=== PATIENT | female | born 1990 | race Native Hawaiian/Other Pacific Islander ===

== ENCOUNTER 2016-08-30 21:02 | Emergency (ER) | payer OTHER ==
[~2016-08-30] VITALS: Ht 144.8 cm; Wt 69.4 kg
[2016-08-30 22:13] VITALS: BP 137/90; TEMP 98.6
== END 2016-08-30 22:13 | disposition home or self-care (01) ==
LOC: ED 21:02
DX: L73.2 Hidradenitis suppurativa (principal)
CPT/HCPCS: 99282; J0696

== ENCOUNTER 2016-10-13 17:59 | Emergency (ER) | payer OTHER ==
[~2016-10-13] VITALS: Ht 144.8 cm; Wt 64.9 kg
[2016-10-13 19:35] LABS: PLATELET COUNT 338 K/uL (152-353)
[2016-10-13 21:37] VITALS: BP 110/73; TEMP 98.7
== END 2016-10-13 21:40 | disposition home or self-care (01) ==
LOC: ED 17:59
PROVIDERS: Specialist
DX: O23.01 Infections of kidney in pregnancy, first trimester (principal); Z3A.01 Less than 8 weeks gestation of pregnancy
CPT/HCPCS: 36415; 81000; 84702; 85027; 87088; 87490; 87590; 96361; 96365; 99284; J0690

== ENCOUNTER 2016-10-25 19:03 | Emergency (ER) | payer OTHER ==
[~2016-10-25] VITALS: Ht 144.8 cm; Wt 64.9 kg
[2016-10-25 23:30] VITALS: BP 140/82; TEMP 98.3
== END 2016-10-25 23:30 | disposition home or self-care (01) ==
LOC: ED 19:03
DX: O20.0 Threatened abortion (principal); Z3A.01 Less than 8 weeks gestation of pregnancy; R10.2 Pelvic and perineal pain
CPT/HCPCS: 81000; 81025; 84702; 86900; 86901; 99283

== ENCOUNTER 2018-05-03 07:24 | Emergency (ER) | payer OTHER ==
[~2018-05-03] VITALS: Ht 144.8 cm; Wt 72.1 kg
[2018-05-03 07:31] VITALS: TEMP 97.7
[2018-05-03 08:00] LABS: PLATELET COUNT 336 K/uL (152-353)
[2018-05-03 08:11] LABS: POTASSIUM 3.7 mmol/L (3.6-5.2)
[2018-05-03 09:53] VITALS: BP 108/68
== END 2018-05-03 09:53 | disposition home or self-care (01) ==
LOC: ED 07:24
PROVIDERS: Internal Medicine
DX: O03.9 Complete or unspecified spontaneous abortion without complication (principal)
CPT/HCPCS: 80053; 85027; 96374; 96375; 99284; J2270; J2405

== ENCOUNTER 2018-06-24 11:00 | Emergency (ER) | payer OTHER ==
[~2018-06-24] VITALS: Ht 144.8 cm; Wt 65.8 kg
[2018-06-24 11:10] VITALS: TEMP 97.9
[2018-06-24 11:37] LABS: PLATELET COUNT 385 K/uL (152-353)
[2018-06-24 13:00] VITALS: BP 113/55
== END 2018-06-24 13:00 | disposition home or self-care (01) ==
LOC: ED 11:00
DX: R05 Cough (principal); J40 Bronchitis, not specified as acute or chronic
CPT/HCPCS: 36415; 80053; 81000; 85027; 87502; 87651; 99283

== ENCOUNTER 2018-09-05 18:16 | Observation (INO) | payer OTHER ==
[~2018-09-05] VITALS: Ht 144.8 cm; Wt 63.5 kg
[2018-09-05 19:23] VITALS: BP 133/80; TEMP 98.5; Ht 144.8 cm; Wt 63.5 kg
[2018-09-05 20:00] VITALS: BP 113/71; TEMP 98.6
[2018-09-05 20:59] LABS: PLATELET COUNT 244 K/uL (152-353)
[2018-09-06] VITALS: BP 119/72; TEMP 99.2
[2018-09-06 04:00] VITALS: BP 92/61; TEMP 97.8
[2018-09-06 08:20] VITALS: BP 98/60; TEMP 98
[2018-09-06 12:15] VITALS: BP 121/67; TEMP 97.7
[2018-09-06 16:00] VITALS: BP 130/86; TEMP 97.9
[2018-09-06 20:27] VITALS: BP 109/60; TEMP 98.2
[2018-09-07] VITALS: BP 129/74; TEMP 98.3
[2018-09-07 04:00] VITALS: BP 144/72; TEMP 98.8
[2018-09-07 08:00] VITALS: BP 101/53; TEMP 98.1
== END 2018-09-07 12:35 | disposition home or self-care (01) ==
LOC: MED/SURG 18:16
PROVIDERS: ADMIT Family Medicine
DX: J09.X2 Influenza due to identified novel influenza A virus with other respiratory manifestations (principal); E86.0 Dehydration; R50.9 Fever, unspecified; R05 Cough; J40 Bronchitis, not specified as acute or chronic
CPT/HCPCS: 80053; 85027; 87040; 87502; 94640; 94664; 94760; 96365; 96366; 96375; 99220; G0378; G0379; J0696; J2930; J3490

== ENCOUNTER 2018-11-19 13:50 | Emergency (ER) | payer OTHER ==
[~2018-11-19] VITALS: Ht 144.8 cm; Wt 66.7 kg
[2018-11-19 16:50] VITALS: BP 115/72; TEMP 98
== END 2018-11-19 16:50 | disposition home or self-care (01) ==
LOC: ED 13:50
PROC: 0H98XZZ Drainage of Buttock Skin, External Approach (ICD-10-PCS; principal; 2018-11-19)
DX: L02.31 Cutaneous abscess of buttock (principal)
CPT/HCPCS: 99283; J7040

== ENCOUNTER 2019-06-16 22:21 | Observation (INO) | payer OTHER ==
[~2019-06-16] VITALS: Ht 144.8 cm; Wt 68.0 kg
[2019-06-16 22:26] VITALS: BP 125/81; TEMP 99.7
[2019-06-17] VITALS (7 sets, daily range): BP systolic 109–132; BP diastolic 63–72; TEMP 97.7–98.5; Ht 144.8 cm; Wt 68.0 kg
[2019-06-17 00:09] LABS: PLATELET COUNT 361 K/uL (152-353)
[2019-06-17 00:18] LABS: POTASSIUM 3.9 mmol/L (3.6-5.2)
[2019-06-18 04:00] VITALS: BP 109/77; TEMP 98.6
[2019-06-18 08:00] VITALS: BP 118/73; TEMP 97.5
[2019-06-18 12:00] VITALS: BP 108/69; TEMP 97.5
== END 2019-06-18 15:00 | disposition home or self-care (01) ==
LOC: ED 22:21 → MED/SURG 06-17 00:11
PROVIDERS: ADMIT Emergency Medicine
DX: J44.1 Chronic obstructive pulmonary disease with (acute) exacerbation (principal); J20.9 Acute bronchitis, unspecified; J44.0 Chronic obstructive pulmonary disease with (acute) lower respiratory infection; Z72.0 Tobacco use; E78.1 Pure hyperglyceridemia
CPT/HCPCS: 80053; 81000; 83735; 84702; 85027; 87502; 94640; 94644; 94645; 94664; 94760; 96365; 96366; 96367; 96372; 96374; 96375; 99220; 99284; G0378; J0456; J0696; J1650; J2930; J3475; J3490

== ENCOUNTER 2019-10-20 22:23 | Emergency (ER) | payer OTHER ==
[~2019-10-20] VITALS: Ht 144.8 cm; Wt 68.0 kg
[2019-10-20 22:51] LABS: PLATELET COUNT 351 K/uL (152-353)
[2019-10-20 22:59] LABS: POTASSIUM 3.3 mmol/L (3.6-5.2)
[2019-10-21 01:45] VITALS: BP 107/67; TEMP 98.4
== END 2019-10-21 01:45 | disposition home or self-care (01) ==
LOC: ED 22:23
PROVIDERS: Student in an Organized Health Care Education/Training Program
DX: O46.91 Antepartum hemorrhage, unspecified, first trimester (principal); Z3A.10 10 weeks gestation of pregnancy
CPT/HCPCS: 36415; 80053; 83690; 83735; 84702; 85027; 96360; 96361; 96374; 96375; 96376; 99284; J1885; J2270; J2405

== ENCOUNTER 2020-04-21 23:48 | Emergency (ER) | payer OTHER ==
[~2020-04-21] VITALS: Ht 144.8 cm; Wt 68.0 kg
[2020-04-22 00:23] VITALS: TEMP 97.8
[2020-04-22 00:39] LABS: PLATELET COUNT 272 K/uL (152-353)
[2020-04-22 00:42] LABS: POTASSIUM 3.6 mmol/L (3.6-5.2)
[2020-04-22 00:56] VITALS: BP 95/63
== END 2020-04-22 03:00 | disposition short-term general hospital (02) ==
LOC: ED 23:48
PROVIDERS: Emergency Medicine
DX: O03.6 Delayed or excessive hemorrhage following complete or unspecified spontaneous abortion (principal)
CPT/HCPCS: 80053; 84702; 85027; 86850; 86900; 86901; 96360; 96375; 96376; 99284; J2175; J2405

== ENCOUNTER 2020-09-06 15:04 | Outpatient (CLI) | payer OTHER ==
[2020-09-06 15:24] LABS: PLATELET COUNT 377 K/uL (152-353)
[2020-09-06 15:31] LABS: POTASSIUM 3.9 mmol/L (3.6-5.2)
== END 2020-09-06 19:31 | disposition home or self-care (01) ==
LOC: RAD 15:04
PROVIDERS: ATTEND Nurse Practitioner Family
DX: Z01.818 Encounter for other preprocedural examination (principal); J44.9 Chronic obstructive pulmonary disease, unspecified
CPT/HCPCS: 36415; 80053; 85027; 93005

== ENCOUNTER 2021-02-05 15:57 | Emergency (ER) | payer OTHER ==
[~2021-02-05] VITALS: Ht 144.8 cm; Wt 68.0 kg
[2021-02-05 16:00] VITALS: TEMP 98
[2021-02-05 16:30] LABS: PLATELET COUNT 453 K/uL (152-353)
[2021-02-05 16:36] LABS: POTASSIUM 4.2 mmol/L (3.6-5.2)
[2021-02-05 18:04] VITALS: BP 103/65
== END 2021-02-05 18:05 | disposition home or self-care (01) ==
LOC: ED 15:57
PROVIDERS: Emergency Medicine
DX: J45.901 Unspecified asthma with (acute) exacerbation (principal); F17.210 Nicotine dependence, cigarettes, uncomplicated
CPT/HCPCS: 36415; 80048; 85027; 96360; 96376; 99284; J0696; J2930

== ENCOUNTER 2021-06-27 20:24 | Inpatient (IN) | payer OTHER ==
[2021-06-27] VITALS (7 sets, daily range): BP systolic 108–155; BP diastolic 69–80; TEMP 98–98.2; Ht 149.9 cm; Wt 69.5 kg
[~2021-06-27] VITALS: Ht 149.9 cm; Wt 69.5 kg
[2021-06-27 20:49] LABS: PLATELET COUNT 385 K/uL (152-353)
[2021-06-27 20:56] LABS: POTASSIUM 3.6 mmol/L (3.6-5.2)
[2021-06-28] VITALS: BP 111/74; TEMP 98.2
[2021-06-28 04:00] VITALS: BP 88/59; TEMP 98.7
[2021-06-28 05:14] LABS: POTASSIUM 4.3 mmol/L (3.6-5.2)
[2021-06-28 05:26] LABS: PLATELET COUNT 294 K/uL (152-353)
[2021-06-28 08:00] VITALS: BP 106/69; TEMP 97.9
[2021-06-28 12:00] VITALS: BP 117/71; TEMP 98.1
[2021-06-28 16:00] VITALS: BP 123/71; TEMP 97.5
[2021-06-28 20:00] VITALS: BP 134/76; TEMP 98.3
[2021-06-29] VITALS: BP 108/65; TEMP 98.5
[2021-06-29 04:00] VITALS: BP 117/70; TEMP 97.9
[2021-06-29 08:00] VITALS: BP 134/78; TEMP 97.7
[2021-06-29 10:02] LABS: PLATELET COUNT 305 K/uL (152-353)
[2021-06-29 12:00] VITALS: BP 126/75; TEMP 98.2
[2021-06-29 16:00] VITALS: BP 117/69; TEMP 98
[2021-06-29 20:00] VITALS: BP 115/75; TEMP 98.3
[2021-06-30] VITALS: BP 119/87; TEMP 97.4
[2021-06-30 04:00] VITALS: BP 111/80; TEMP 97.8
[2021-06-30 04:56] LABS: PLATELET COUNT 331 K/uL (152-353)
[2021-06-30 05:05] LABS: POTASSIUM 4.3 mmol/L (3.6-5.2)
[2021-06-30 08:00] VITALS: BP 131/85; TEMP 98.3
== END 2021-06-30 11:25 | disposition home or self-care (01) | DRG 203 ==
LOC: ED 20:24 → MED/SURG 22:00
PROVIDERS: ADMIT Emergency Medicine; ATTEND Family Medicine
DX: J45.901 Unspecified asthma with (acute) exacerbation (principal); D72.828 Other elevated white blood cell count; F41.8 Other specified anxiety disorders; Z72.0 Tobacco use
CPT/HCPCS: 36415; 80048; 80053; 83735; 84100; 85007; 85027; 87635; 94640; 94645; 94664; 94668; 94760; 96365; 99284; J0456; J0696; J1885; J2930; U0003

== ENCOUNTER 2021-07-01 10:33 | Outpatient (CLI) | payer OTHER ==
[2021-07-01 11:03] LABS: PLATELET COUNT 291 K/uL (152-353)
== END 2021-07-01 19:16 | disposition home or self-care (01) ==
LOC: LABW 10:33
PROVIDERS: ATTEND Family Medicine
DX: D72.829 Elevated white blood cell count, unspecified (principal)
CPT/HCPCS: 36415; 85027

== ENCOUNTER 2022-03-07 05:31 | Observation (INO) | payer OTHER ==
[~2022-03-07] VITALS: Ht 144.8 cm; Wt 67.2 kg
[2022-03-07 05:31] VITALS: BP 131/78
[2022-03-07 06:11] LABS: PLATELET COUNT 323 K/uL (152-353)
[2022-03-07 06:19] LABS: POTASSIUM 3.7 mmol/L (3.6-5.2)
[2022-03-07 07:56] VITALS: BP 95/55
[2022-03-07 12:37] VITALS: BP 113/77; TEMP 98.1; Ht 144.8 cm; Wt 67.2 kg
[2022-03-07 16:00] VITALS: BP 108/75; TEMP 97.3
[2022-03-07] MEDS ORDERED: BREZTRI AEROSPH1 AER INH (16:22)
[2022-03-07] MEDS ORDERED: ALBUSOL INH (16:23)
[2022-03-07] MEDS ORDERED: ALBU90AE13 INH (16:23)
[2022-03-07 20:00] VITALS: BP 117/68; TEMP 97.8
[2022-03-08] VITALS: BP 120/69; TEMP 98.1
[2022-03-08 04:00] VITALS: BP 117/51; TEMP 98.3
[2022-03-08 04:42] LABS: PLATELET COUNT 315 K/uL (152-353)
[2022-03-08 08:00] VITALS: BP 123/74; TEMP 98.5
[2022-03-08 12:00] VITALS: BP 110/69; TEMP 98.3
== END 2022-03-08 14:42 | disposition home or self-care (01) ==
LOC: ED 05:31 → MED/SURG 07:35
PROVIDERS: ADMIT Emergency Medicine Emergency Medical Services; ATTEND Family Medicine
DX: J44.1 Chronic obstructive pulmonary disease with (acute) exacerbation (principal)
CPT/HCPCS: 36415; 36600; 80053; 82805; 83605; 83735; 84100; 84484; 85027; 87040; 87502; 87635; 93005; 94664; 94760; 96360; 96361; 96367; 96374; 96375; 99220; 99284; G0378; J0456; J0696; J1100; J2930; J7040; U0003

== ENCOUNTER 2022-08-25 11:55 | Emergency (ER) | payer OTHER ==
[~2022-08-25] VITALS: Ht 144.8 cm; Wt 71.7 kg
[~2022-08-25 11:55] MED LIST: ALBU90AE13 INH; ALBUSOL INH; BREZTRI AEROSPH1 AER INH
[2022-08-25 12:31] LABS: PLATELET COUNT 334 K/uL (152-353)
[2022-08-25 12:39] LABS: SODIUM 138 mmol/L (136-145)
[2022-08-25 13:24] LABS: PARTIAL THROMBOPLASTIN TIME 23.8 SECONDS (24.5-33.6)
== END 2022-08-25 14:29 | disposition home or self-care (01) ==
LOC: ED 11:55
PROVIDERS: Emergency Medicine
DX: R10.13 Epigastric pain (principal)
CPT/HCPCS: 36415; 80053; 81002; 83690; 84484; 85027; 85610; 85730; 93005; 96361; 96374; 96375; 99284; J2405; J3490